=== PATIENT | female | born 1970 | race Caucasian/White ===

== ENCOUNTER → 2018-10-13 00:08 | Outpatient (CLI) | payer MEDICARE, SELFPAY ==
--- NOTE | 2018-10-13 09:15 | DI.NM_ITS ---
SYMPTOM/DIAGNOSIS: ABD PAIN HEPATOBILIARY CCK SCAN: Hepatobiliary scan was performed with intravenous infusion of 4.9 millicuries of Technetium 99 labeled Mebrofenin. There was prompt homogeneous hepatic uptake and prompt uptake in bile ducts, gallbladder and small intestine. Following injection of 1.6 micrograms of Cholecystokinin, the patient experienced nausea and abdominal pain. The gallbladder ejection fraction was calculated at 29% which is below the normal range of 40-100%. CONCLUSION: Abnormally decreased ejection fraction on CCK Faye scan. The patient experienced nausea and abdominal pain with injection of CCK.
== END ==
PROVIDERS: PCP Internal Medicine; Visit Provider Internal Medicine
DX: R10.9 Unspecified abdominal pain (principal); K87 Disorders of gallbladder, biliary tract and pancreas in diseases classified elsewhere
CPT/HCPCS: 78227